=== PATIENT | male | born 1950 | race Caucasian/White ===

== ENCOUNTER 2019-08-31 08:48 | Observation (INO) ==
[2019-08-31] MEDS ORDERED: ALBUTEROL SULFATE 2.5 MG/3 ML NEBULIZER NEB ONE (09:13)
--- NOTE | 2019-08-31 09:17 | XRay Report ---
INDICATION: shortness of breath TECHNIQUE: AP portable semiupright chest x-ray COMPARISON: Previous chest x-rays dated 06/10/2019, 10/27/2017 FINDINGS: Lungs:Lungs are negative. No focal pulmonary parenchymal infiltrate or mass. There is hyperexpansion consistent with COPD. This is unchanged Heart, vascular:No significant cardiomegaly. Pulmonary vascularity is normal. No pulmonary edema or pulmonary congestion Mediastinum, mary kate:No mediastinal widening. No hilar mass Pleura:No pleural fluid. No pleural-based mass or calcification Skeletal:Small sclerotic density in the anterior left sixth rib. This is stable and considered benign IMPRESSION: 1. Changes consistent with COPD 2. No acute or focal abnormality. No interval change Interpreted and Authenticated by: Yonas Johnson 08/31/19
--- NOTE | 2019-08-31 09:24 | Emergency Department Note ---
SOB HPI General Chief Complaint: Shortness of Breath/Dyspnea Stated Complaint: shortness of breath, COPD Time Seen by Provider: 08/31/19 09:01 Source: patient Mode of arrival: wheelchair Limitations: physical limitation (Due to shortness of breath.) History of Present Illness HPI Narrative: Narrative: 69-year-old gentleman with past history of emphysema occluding exacerbation a month or 2 ago and the last 3 days increasingly short of breath with any activity. He uses inhalers at home. He is uses albuterol or nebulizer more than 4 times maybe even as many as 8 times already this morning. He has not been very successful and getting better. [facility] who [facility] him here. He had saturation in triage at 78 %. He is now on 4 L of oxygen. Admitting pulse 99, blood pressure 200/123. Denies recent fevers, chills, sweats. No change in his phlegm. He has a little chronic cough that has not much changed. Has been wheezing. No nausea or chest pain. Related Data Home Medications Medication Instructions Recorded Confirmed albuterol sulfate 2 puff INHALATION QIDP PRN 08/31/19 08/31/19 albuterol sulfate 2.5 mg INHALATION QIDP PRN 08/31/19 08/31/19 amlodipine 5 mg PO QDAY 08/31/19 08/31/19 budesonide-formoterol 2 inh INHALATION BID 08/31/19 08/31/19 celecoxib 100 mg PO QDAY 08/31/19 08/31/19 cholecalciferol (vitamin D3) 125 mcg PO QDAY 08/31/19 08/31/19 guaifenesin 600 mg PO BID 08/31/19 08/31/19 lisinopril 40 mg PO QDAY 08/31/19 08/31/19 metoprolol succinate 25 mg PO DAILY 08/31/19 08/31/19 prednisone 10 mg PO QDAY 08/31/19 08/31/19 tiotropium bromide 2 inh INHALATION QAM 08/31/19 08/31/19 Allergies Allergy/AdvReac Type Severity Reaction Status Date / Time No Known Drug Allergies Allergy Verified 08/31/19 08:37 Review of Systems ROS ROS Narrative: Narrative: Denies palpitations. No abdominal pain nausea vomiting diarrhea constipation back pain weakness anxiety or depression. PFSH Narrative Patient History Narrative: Narrative: Denies history of diabetes, chronic narcotics, anticoagulation, CHF, IN, DVT, PE, PAYTON, pneumonia, CVA, TIA. Medical/Surgical/Family History All Active Problems (Updated 08/31/19 @ 11:32 by Dmitriy Douglas DO) Acute exacerbation of chronic obstructive airways disease (Acute) Hypoxia (Acute) Cigarette smoker (Chronic) Post traumatic stress disorder (PTSD) (Chronic) Hypertension, essential (Chronic) COPD (chronic obstructive pulmonary disease) with emphysema (Chronic) Respiratory distress (Acute) Medical History (Updated 08/31/19 @ 11:32 by Dmitriy Douglas DO) Cigarette smoker (Chronic) COPD (chronic obstructive pulmonary disease) with emphysema (Chronic) COPD exacerbation (Resolved) Hypertension, essential (Chronic) Post traumatic stress disorder (PTSD) (Chronic) Respiratory distress (Acute) Rib fractures (Inactive) Social History Smoking Status: Current every day smoker Exam Narrative Narrative: Narrative: General Limitations: physical limitation (Due to shortness of breath.) General appearance: alert, in distress (Some short struggling to breathe with some audible wheezing.) and nontoxic Head Head: atraumatic and normocephalic Eye Eye: Present normal appearance, PERRL and EOMI ENT ENT: Present normal oropharynx and mucous membranes moist Neck Neck: Present trachea midline; Absent lymphadenopathy and thyromegaly Chest Chest: Present symmetric chest wall rise Respiratory Respiratory: Present wheezes (Mild-moderate but diffusely.); Absent respiratory distress, rales/crackles, stridor, accessory muscle use and prolonged expiratory phase Cardiovascular Cardiovascular: Present regular rate, normal rhythm and other (Distant and hard to hear.); Absent systolic murmur and diastolic murmur Adbominal Abdominal: Present soft and other (Domed.); Absent distention, tenderness, guarding, rebound, rigidity, organomegaly and mass Extremities Extremities: Absent pedal edema, pretibial edema, calf tenderness and cyanosis Back Back: Neurological Neurological: Present alert, oriented X3 and CN II-XII intact Psychiatric Psychiatric: Present normal affect, anxious (Mildly), polite and pleasant; Absent depressed, agitated and poor eye contact Skin Skin: Present warm and dry; Absent cyanosis and pallor Course Vital Signs Vital signs: Vital Signs Pulse Rate 99 H 08/31/19 08:50 Respiratory Rate 30 H 08/31/19 08:50 Blood Pressure 200/123 08/31/19 08:50 Pulse Oximetry (%) 78 L 08/31/19 08:50 Temperature 97.3 F 08/31/19 18:52 Pulse Rate 94 H 08/31/19 18:52 Respiratory Rate 24 H 08/31/19 18:52 Blood Pressure 148/85 08/31/19 18:52 Pulse Oximetry (%) 95 08/31/19 18:52 [facility] MDM Narrative Medical decision making narrative: Narrative: 9:05 AM - interviewed and examined. Appears to be a COPD exacerbation with significant wheezing. Will do albuterol treatment and pulmonary and ACS work- up. X-ray on my review suggests diffuse increased markings suggestive of failure. Minimal blunting. Official reading pending. Multiple labs including ABG ordered. 9:13 AM - EKG demonstrates right axis deviation with QRS at 100. Low voltage. No ACS findings. 10:42 AM - labs are fairly unremarkable with an unremarkable CBC, normal white count. CMP demonstrates sodium 127 with low chloride as well. Renal function and liver function tests unremarkable. Troponin is less than 0.01. Procalcitonin is 0.07. Lactic acid 0.6. BNP is 90. 10:44 AM - chest x-ray results: 1. Changes consistent with COPD 2. No acute or focal abnormality. No interval change 10:48 AM - nursing reports that he got down to being off of oxygen and 92% but with walking dropped to 88%. This was not vigorous or far. Will consider criteria for hypoxia, COPD exacerbation and admission. 11:15 AM - I discussed patient's circumstance with Dr. Morel who agrees with admission for COPD exacerbation with hypoxia. Lab Data Result diagrams: 08/31/19 09:07 08/31/19 09:07 Labs: Lab Results 08/31/19 08/31/19 08/31/19 Range/Units 08:54 08:54 09:07 WBC 8.8 (4.50-11.00) K/mcL RBC 4.76 (4.63-6.08) M/mcL Hgb 16.4 (13.7-17.5) g/dL Hct 46.1 (40.1-51.0) % MCV 96.8 (80.0-100.0) fL MCH 34.5 H (26.0-34.0) pg MCHC 35.6 (31.0-36.0) g/dL RDW 13.0 (11.5-14.5) % Plt Count 268 (140-440) K/mcL MPV 10.4 (7.4-10.4) fL Gran % 65.6 (38.0-78.0) % Lymph % (Auto) 17.5 (15.5-49.0) % [place] % (Auto) 8.2 (1.0-12.0) % Eos % (Auto) 7.6 H (0.0-7.0) % Baso % (Auto) 1.1 (0.0-2.0) % Gran # 5.78 (1.80-8.00) K/mcL Lymph # (Auto) 1.54 (1.50-4.80) K/mcL [place] # (Auto) 0.72 (0.10-0.90) K/mcL Eos # (Auto) 0.67 (0.00-0.70) K/mcL Baso # (Auto) 0.10 (0.00-0.30) K/mcL VBG Lactic Acid (0.5-2.0) mmol/L Sodium (133-145) mmol/L Potassium (3.3-5.1) mmol/L Chloride (96-108) mmol/L Carbon Dioxide (22-30) mmol/L Anion Gap (8-16) BUN (8-23) mg/dl Creatinine (0.7-1.2) mg/dl GFR Calculation Glucose (70-105) mg/dL Calcium (8.6-10.4) mg/dl Total Bilirubin (0.0-1.0) mg/dL AST (0-37) U/l ALT (0-40) U/l Alkaline Phosphatase (39-117) U/L Total Creatine Kinase (24-195) IU/L CK-MB (CK-2) (0-4.9) ng/ml Myoglobin (28-72) ng/ml Troponin T (0-0.03) ng/ml NT-Pro-B Natriuret Pep 89.7 (0-125) pg/ml Total Protein (5.9-8.4) gm/dL Albumin (3.2-5.2) gm/dL Globulin (2.2-3.7) gm/dL Albumin/Globulin Ratio (1.0-2.3) Procalcitonin 0.07 (<0.10) ng/mL 08/31/19 08/31/19 08/31/19 Range/Units 09:07 09:07 09:26 WBC (4.50-11.00) K/mcL RBC (4.63-6.08) M/mcL Hgb (13.7-17.5) g/dL Hct (40.1-51.0) % MCV (80.0-100.0) fL MCH (26.0-34.0) pg MCHC (31.0-36.0) g/dL RDW (11.5-14.5) % Plt Count (140-440) K/mcL MPV (7.4-10.4) fL Gran % (38.0-78.0) % Lymph % (Auto) (15.5-49.0) % [place] % (Auto) (1.0-12.0) % Eos % (Auto) (0.0-7.0) % Baso % (Auto) (0.0-2.0) % Gran # (1.80-8.00) K/mcL Lymph # (Auto) (1.50-4.80) K/mcL [place] # (Auto) (0.10-0.90) K/mcL Eos # (Auto) (0.00-0.70) K/mcL Baso # (Auto) (0.00-0.30) K/mcL VBG Lactic Acid 0.6 (0.5-2.0) mmol/L Sodium 127 L (133-145) mmol/L Potassium 5.0 (3.3-5.1) mmol/L Chloride 91 L (96-108) mmol/L Carbon Dioxide 21 L (22-30) mmol/L Anion Gap 15.0 (8-16) BUN 16 (8-23) mg/dl Creatinine 0.7 (0.7-1.2) mg/dl GFR Calculation 95 Glucose 109 H (70-105) mg/dL Calcium 9.7 (8.6-10.4) mg/dl Total Bilirubin 0.6 (0.0-1.0) mg/dL AST 25 (0-37) U/l ALT 16 (0-40) U/l Alkaline Phosphatase 57 (39-117) U/L Total Creatine Kinase 165 (24-195) IU/L CK-MB (CK-2) 13.3 H (0-4.9) ng/ml Myoglobin 50 (28-72) ng/ml Troponin T < 0.01 (0-0.03) ng/ml NT-Pro-B Natriuret Pep (0-125) pg/ml Total Protein 7.3 (5.9-8.4) gm/dL Albumin 4.9 (3.2-5.2) gm/dL Globulin 2.4 (2.2-3.7) gm/dL Albumin/Globulin Ratio 2.0 (1.0-2.3) Procalcitonin (<0.10) ng/mL Discharge Plan Patient/Caregiver Discharge Instructions Pt seen by [employer]LE[employer] CURATOR/PA only: No Clinical Impression: Acute exacerbation of chronic obstructive airways disease, Hypoxia Patient Disposition: Still a Patient Condition: Fair Discharge Date/Time: 08/31/19 12:24
[2019-08-31] MEDS ORDERED: methylPREDNISolone SOD SUCC 125 MG/2 ML VIAL IV ONE (09:47)
[2019-08-31] MEDS ORDERED: IPRATROPIUM/ALBUTEROL 3 ML AMPUL.NEB NEB ONE (09:47)
[2019-08-31 09:49] LABS: Basophils % (Auto) 1.1 % (0.0-2.0); Eosinophils # (Auto) 0.67 K/mcL (0.00-0.70); Eosinophils % (Auto) 7.6 % (0.0-7.0); Granulocytes % (Auto) 65.6 % (38.0-78.0); Hematocrit 46.1 % (40.1-51.0); Hemoglobin 16.4 g/dL (13.7-17.5); Lymphocytes # (Auto) 1.54 K/mcL (1.50-4.80); Lymphocytes % (Auto) 17.5 % (15.5-49.0); Mean Cell Volume 96.8 fL (80.0-100.0); Mean Corpuscular HGB Conc 35.6 g/dL (31.0-36.0); Mean Platelet Volume 10.4 fL (7.4-10.4); Monocytes # (Auto) 0.72 K/mcL (0.10-0.90); Monocytes % (Auto) 8.2 % (1.0-12.0); Platelet Count 268 K/mcL (140-440); RBC 4.76 M/mcL (4.63-6.08); WBC 8.8 K/mcL (4.50-11.00)
[2019-08-31 10:02] LABS: Creatine Kinase MB 13.3 ng/ml (0-4.9); Myoglobin 50 ng/ml (28-72)
[2019-08-31 10:02] LABS: proBNP 89.7 pg/ml (0-125)
[2019-08-31 10:04] LABS: ALT/SGPT 16 U/l (0-40); AST/SGOT 25 U/l (0-37); Albumin 4.9 gm/dL (3.2-5.2); Alkaline Phosphatase 57 U/L (39-117); Bilirubin,Total 0.6 mg/dL (0.0-1.0); Blood Urea Nitrogen 16 mg/dl (8-23); Calcium 9.7 mg/dl (8.6-10.4); Carbon Dioxide 21 mmol/L (22-30); Chloride 91 mmol/L (96-108); Creatine Kinase 165 IU/L (24-195); Globulin 2.4 gm/dL (2.2-3.7); Glomerular Filtration Rate 95; Glucose 109 mg/dL (70-105)
--- NOTE | 2019-08-31 11:14 | Internal Med History&Physical ---
HPI History of Present Illness Patient information: Note initiated : 08/31/19 at 11:14 am Service Date, if different from initiated Date: [] Patient: Jose Welch 69 y/o M admitted on for SOB - COPD. Chief Complaint: [] History of present illness: Mr. Welch is a 69 year old M with an [id number] history of smoking/COPD/hypertension who presents to the ER with 3 days onset of worsening shortness of breath. Patient continues smoke quarter to half pack a day. Over the last 3 days he has progressively gotten worse with increasing dyspnea even at rest. He has been unable to function or talk in full sentences. With worsening symptoms he presents to primary care physician at [facility] and was referred to the ER for evaluation Initial work-up was consistent with COPD exacerbation requiring close oxygen/tachypneic tachycardic. ABG 7.3 . Patient was started on bronchodilators/IV steroids however due to inadequate relief hospitalist service was consulted for admission. At the time evaluation patient is alert and oriented. He is barely able to talk in full sentences. He appears distressed. He denies flu or pneumonia vaccine and does not believe in vaccination. He denies sick contacts. Denies changes in medications. He denies lower extremity swelling, weight loss, hemoptysis, diarrhea dysuria joint pain or rash. Review of systems 10 point review system was performed and is negative except for ones cussed above PFSH PFS Medical History (Updated 08/31/19 @ 11:32 by Dmitriy Douglas DO) Cigarette smoker (Chronic) COPD (chronic obstructive pulmonary disease) with emphysema (Chronic) COPD exacerbation (Resolved) Hypertension, essential (Chronic) Post traumatic stress disorder (PTSD) (Chronic) Respiratory distress (Acute) Rib fractures (Inactive) Social History (Updated 06/10/19 @ 10:47 by Milan Hill PA-C) smoking status: Current every day smoker MEDS/ALLERGIES Home Medications and Allergies Home Medications Medication Instructions Recorded Confirmed Type Celebrex 100 mg PO BID 08/31/19 08/31/19 History Symbicort 1 dose PO DAILY 08/31/19 08/31/19 History albuterol sulfate 90 mcg INHALATION DAILY 08/31/19 08/31/19 History amlodipine benzoate 10 mg PO DAILY 08/31/19 08/31/19 History budesonide-formoterol 4.5 mcg PO DAILY 08/31/19 08/31/19 History cholecalciferol (vitamin D3) 125 mcg PO DAILY 08/31/19 08/31/19 History guaifenesin 600 mg PO DAILY 08/31/19 08/31/19 History ipratropium-albuterol 3 ml PO DAILY 08/31/19 08/31/19 History lisinopril 40 mg PO DAILY 08/31/19 08/31/19 History metoprolol succinate 25 mg PO DAILY 08/31/19 08/31/19 History prednisone 10 mg PO DAILY 08/31/19 08/31/19 History tiotropium bromide 1 dose PO DAILY 08/31/19 08/31/19 History Allergies Allergy/AdvReac Type Severity Reaction Status Date / Time No Known Drug Allergies Allergy Verified 08/31/19 08:37 EXAM Constitutional Vitals: Pulse Resp BP Pulse Ox 94 H 25 H 145/94 92 08/31/19 11:01 08/31/19 11:01 08/31/19 11:01 08/31/19 11:01 Head normocephalic Oral cavity moist No ear nose discharge Eye movement symmetrical Neck supple no visible lymphadenopathy Chested, occasionally irregular rhythm Labored breathing Nondistended nontender abdomen Lower extremity no cyanosis clubbing or joint swelling Skin no suspicious lesion Psych anxious but alert cooperative Neuro normal higher function DATA Data Completed and Pending Labs on day of discharge: Labs from last 24 hours 08/31/19 08/31/19 08/31/19 09:26 09:07 09:07 WBC RBC Hgb Hct MCV MCH MCHC RDW Plt Count MPV Gran % Lymph % (Auto) Delta % (Auto) Eos % (Auto) Baso % (Auto) Gran # Lymph # (Auto) Delta # (Auto) Eos # (Auto) Baso # (Auto) VBG Lactic Acid 0.6 Sodium 127 L Potassium 5.0 Chloride 91 L Carbon Dioxide 21 L Anion Gap 15.0 BUN 16 Creatinine 0.7 GFR Calculation 95 Glucose 109 H Calcium 9.7 Total Bilirubin 0.6 AST 25 ALT 16 Alkaline Phosphatase 57 Total Creatine Kinase 165 CK-MB (CK-2) 13.3 H Myoglobin 50 Troponin T < 0.01 NT-Pro-B Natriuret Pep Total Protein 7.3 Albumin 4.9 Globulin 2.4 Albumin/Globulin Ratio 2.0 Procalcitonin 08/31/19 08/31/19 08/31/19 09:07 08:54 08:54 WBC 8.8 RBC 4.76 Hgb 16.4 Hct 46.1 MCV 96.8 MCH 34.5 H MCHC 35.6 RDW 13.0 Plt Count 268 MPV 10.4 Gran % 65.6 Lymph % (Auto) 17.5 [place] % (Auto) 8.2 Eos % (Auto) 7.6 H Baso % (Auto) 1.1 Gran # 5.78 Lymph # (Auto) 1.54 Delta # (Auto) 0.72 Eos # (Auto) 0.67 Baso # (Auto) 0.10 VBG Lactic Acid Sodium Potassium Chloride Carbon Dioxide Anion Gap BUN Creatinine GFR Calculation Glucose Calcium Total Bilirubin AST ALT Alkaline Phosphatase Total Creatine Kinase CK-MB (CK-2) Myoglobin Troponin T NT-Pro-B Natriuret Pep 89.7 Total Protein Albumin Globulin Albumin/Globulin Ratio Procalcitonin 0.07 A/P Narrative A/P Narrative: * Acute exacerbation of COPD, start bronchodilators/IV steroids/pulmonary toilet. No indication for antibiotic at this time. 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 Continue supplemental oxygen * Hypertension continue lisinopril/metoprolol/amlodipine * History of alcoholism-monitor for withdrawal. Beer with meals * History of tobacco dependence-nicotine patch * Prophylaxis heparin Plan * Observation admit * Steroids/bronchodilators * Pulmonary toilet * Pre-existing medical condition management home meds * Discharge planning Time Spent With Patient Time: Total time spent is greater than 50% in coordination of care (as documented) at patient's floor/unit and/or counseling patient: Total time spent with greater than 50% in coordination of care (as documented) at patient's floor/unit and/or counseling patient:: Greater than 35 minutes
[2019-08-31] MEDS ORDERED: ACETAMINOPHEN 650 MG/65 ML BOTTLE IV PRN (12:48)
[2019-08-31] MEDS ORDERED: POLYETHYLENE GLYCOL 3350 17 GM PACKET PO PRN (12:48)
[2019-08-31] MEDS ORDERED: POTASSIUM CHLORIDE 20 MEQ PACKET PO PRN (12:48)
[2019-08-31] MEDS ORDERED: ONDANSETRON 4 MG/2 ML VIAL IV PRN (12:48)
[2019-08-31] MEDS ORDERED: ACETAMINOPHEN 325 MG TABLET PO PRN (12:48)
[2019-08-31] MEDS ORDERED: BISACODYL 10 MG SUPP.RECT PR PRN (12:48)
[2019-08-31] MEDS ORDERED: MAGNESIUM SULFATE 2 GM/50 ML BAG IV PRN (12:48)
[2019-08-31] MEDS ORDERED: ONDANSETRON 4 MG ODT TABLET SL PRN (12:48)
[2019-08-31] MEDS ORDERED: guaiFENesin/CODEINE 10 ML UDC PO PRN (12:48)
[2019-08-31] MEDS: IPRATROPIUM/ALBUTEROL 3 ML AMPUL.NEB NEB SCH ×3 (14:55→23:05)
[2019-08-31] MEDS ORDERED: ALBUTEROL SULFATE 2.5 MG/3 ML NEBULIZER NEB PRN (15:38)
[2019-08-31] MEDS: 0.9 % SODIUM CHLORIDE 10 ML SYRINGE IV SCH ×2 (17:27→20:03)
[2019-08-31] MEDS: HEPARIN 5,000 UNIT/ML VIAL SQ SCH (19:55)
[2019-08-31] MEDS: methylPREDNISolone SOD SUCC 125 MG/2 ML VIAL IV SCH (19:55)
[2019-08-31] MEDS: MELATONIN 3 MG TABLET PO PRN (19:56)
[2019-08-31] MEDS: CELECOXIB 100 MG CAPSULE PO SCH (19:56)
[2019-08-31] MEDS: SENNOSIDES/DOCUSATE SODIUM 1 TAB TABLET PO SCH (19:56)
[2019-08-31] MEDS: DOCUSATE SODIUM 100 MG CAPSULE PO SCH (19:56)
[2019-09-01] MEDS: IPRATROPIUM/ALBUTEROL 3 ML AMPUL.NEB NEB SCH ×6 (03:42→23:03)
[2019-09-01] MEDS: 0.9 % SODIUM CHLORIDE 10 ML SYRINGE IV SCH ×3 (06:36→19:59)
[2019-09-01 07:14] LABS: Hematocrit 43.4 % (40.1-51.0); Hemoglobin 15.5 g/dL (13.7-17.5); Mean Cell Volume 95.8 fL (80.0-100.0); Mean Corpuscular HGB Conc 35.7 g/dL (31.0-36.0); Mean Platelet Volume 10.1 fL (7.4-10.4); Platelet Count 254 K/mcL (140-440); RBC 4.53 M/mcL (4.63-6.08); Red Cell Distribution Width 12.7 % (11.5-14.5); WBC 5.3 K/mcL (4.50-11.00)
[2019-09-01] MEDS: DOCUSATE SODIUM 100 MG CAPSULE PO SCH ×2 (08:06→19:58)
[2019-09-01 08:11] LABS: Bilirubin,Direct < 0.2 mg/dL (0.0-0.3)
[2019-09-01 08:12] LABS: ALT/SGPT 13 U/l (0-40); AST/SGOT 24 U/l (0-37); Albumin/Globulin Ratio 1.4 (1.0-2.3); Alkaline Phosphatase 46 U/L (39-117); Bilirubin,Total 0.5 mg/dL (0.0-1.0); Blood Urea Nitrogen 17 mg/dl (8-23); Calcium 9.6 mg/dl (8.6-10.4); Carbon Dioxide 18 mmol/L (22-30); Chloride 89 mmol/L (96-108); Globulin 2.8 gm/dL (2.2-3.7); Glomerular Filtration Rate 95; Glucose 121 mg/dL (70-105); Lactate Dehydrogenase 224 U/L (94-250); Triglycerides 39 mg/dl (<150); Uric Acid 5.5 mg/dL (2.5-8.0)
[2019-09-01] MEDS ORDERED: ALBUTEROL SULFATE 200 PUFF INHALER INH SCH (09:00)
[2019-09-01] MEDS ORDERED: SYMBICORT PO SCH (09:00)
[2019-09-01] MEDS: VITAMIN D3 5,000 UNIT CAPSULE PO SCH (09:02)
[2019-09-01] MEDS: amLODIPine 5 MG TABLET PO SCH (09:02)
[2019-09-01] MEDS: MULTIVIT,THER IRON,CA,FA & MIN 1 TABLET PO SCH (09:02)
[2019-09-01] MEDS: METOPROLOL SUCCINATE 25 MG TAB.XL.24H PO SCH (09:02)
[2019-09-01] MEDS: guaiFENesin 600 MG TAB.SR.12H PO SCH (09:02)
[2019-09-01] MEDS: methylPREDNISolone SOD SUCC 125 MG/2 ML VIAL IV SCH ×2 (09:03→19:58)
[2019-09-01] MEDS: HEPARIN 5,000 UNIT/ML VIAL SQ SCH ×2 (09:04→19:58)
[2019-09-01] MEDS: CELECOXIB 100 MG CAPSULE PO SCH ×2 (09:05→19:58)
[2019-09-01] MEDS: TIOTROPIUM BROMIDE 18 MCG INHALANT INH SCH (09:06)
[2019-09-01] MEDS: BUDESONIDE FORMOTEROL INH SCH ×2 (09:06→20:35)
[2019-09-01] MEDS: SODIUM CHLORIDE 1 GM TABLET PO SCH ×3 (09:11→19:58)
[2019-09-01] MEDS: LISINOPRIL 20 MG TABLET PO SCH (09:11)
[2019-09-01 09:25] LABS: Lymphocytes % 12 % (15-49); Monocytes % (Manual) 2 % (1-12); Platelet Estimate NORMAL (NORMAL); RBC Morphology NORMAL (NORMAL); Segmented Neutrophils % 86 % (38-78)
[2019-09-01] MEDS ORDERED: CYANOCOBALAMIN 1,000 MCG/ML VIAL IM ONE (09:31)
--- NOTE | 2019-09-01 09:38 | Internal Med Progress Note ---
SUBJECTIVE Subjective Patient information: Note initiated : 09/01/19 at 9:36 am Service Date, if different from initiated Date: [] Patient: Jose Welch 69 y/o M admitted on 08/31/19 for SOB - COPD. History of present illness: Mr. Welch is a 69 year old M with an [id number] history of smoking/COPD/hypertension who presents to the ER with 3 days onset of worsening shortness of breath. Patient continues smoke quarter to half pack a day. Over the last 3 days he has progressively gotten worse with increasing dyspnea even at rest. He has been unable to function or talk in full sentences. With worsening symptoms he presents to primary care physician at [facility] and was referred to the ER for evaluation Initial work-up was consistent with COPD exacerbation requiring close oxygen/t achypneic tachycardic. ABG 7.3 /110. Patient was started on bronchodilators/IV steroids however due to inadequate relief hospitalist service was consulted for admission. At the time evaluation patient is alert and oriented. He is barely able to talk in full sentences. He appears distressed. He denies flu or pneumonia vaccine and does not believe in vaccination. He denies sick contacts. Denies changes in medications. He denies lower extremity swelling, weight loss, hemoptysis, diarrhea dysuria joint pain or rash. 08/31-patient feeling a lot better. On IV steroids. Improved dyspnea. Able to talk in near full sentences. Tolerating diet.White count 5.3. Sodium down to 123. Check urine and serum osmolarity. Interval history: Narrative: Constitutional Vitals: Vital Signs Temp Pulse Resp BP Pulse Ox 97.4 F 84 20 137/84 93 09/01/19 06:55 09/01/19 06:55 09/01/19 06:55 09/01/19 06:55 09/01/19 06:55 Period Temp Pulse Resp BP Sys/Mckeon Pulse Ox Last 24 Hr 97.0 F-98.7 F 79-98 16-29 132-164/77-126 89-99 Intake and Output 08/31/19 09/01/19 09/01/19 21:59 05:59 13:59 Intake Total 240 200 900 Output Total 1000 1250 Balance -760 -1050 900 Weight 95.753 kg Alert oriented Nonlabored breathing Minimal anxiety Ambulating Intake & Output: Intake & Output 08/31/19 09/01/19 09/01/19 21:59 05:59 13:59 Intake Total 240 200 900 Output Total 1000 1250 Balance -760 -1050 900 Weight 95.753 kg Intake: Oral 200 900 GI Tube Flush 240 Output: Void Amount 1000 1250 Other: Meal Dinner Breakfast Percent of Meal Consumed 100% 100% Feeding Ability Independent Urine Appearance Clear Clear Urine Color Bright Yellow Bright Yellow Urine Odor Normal # Voids 1 OBJ DATA Labs CBC & Chem 7: 09/01/19 05:22 09/01/19 05:22 Labs: Abnormal Lab Results 09/01/19 09/01/19 08/31/19 05:22 05:22 09:07 RBC 4.53 L MCH 34.2 H Eos % (Auto) Seg Neutrophils % 86 H Lymphocytes % 12 L Sodium 123 L 127 L Chloride 89 L 91 L Carbon Dioxide 18 L 21 L Glucose 121 H 109 H CK-MB (CK-2) 13.3 H 08/31/19 09:07 RBC MCH 34.5 H Eos % (Auto) 7.6 H Seg Neutrophils % Lymphocytes % Sodium Chloride Carbon Dioxide Glucose CK-MB (CK-2) Meds: Medications Acetaminophen (Tylenol) 650 mg PO Q4-6HP PRN; Protocol PRN Reason: Per Pain Protocol/Fever > 101 Albuterol Sulfate (Ventolin) 2.5 mg NEB Q4HP PRN PRN Reason: Shortness Of Breath Albuterol/Ipratropium (Duoneb) 3 ml NEB Q4HRT [facility] Last Admin: 09/01/19 06:45 Dose: 3 ml Documented by: Amlodipine Besylate (Norvasc) 5 mg PO DAILY [facility] Last Admin: 09/01/19 09:02 Dose: 5 mg Documented by: Bisacodyl (Dulcolax) 10 mg SD Q2-3DAYS PRN PRN Reason: Constipation Celecoxib (Celebrex) 100 mg PO BID [facility] Last Admin: 09/01/19 09:05 Dose: 100 mg Documented by: Cyanocobalamin (Vitamin B12) 1,000 mcg IM ONCE ONE Stop: 09/01/19 09:32 Docusate Sodium (Colace) 100 mg PO BID [facility] Last Admin: 09/01/19 08:06 Dose: Not Given Documented by: Guaifenesin (Mucinex) 600 mg PO DAILY [facility] Last Admin: 09/01/19 09:02 Dose: 600 mg Documented by: Guaifenesin/Codeine Phosphate (Robitussin Ac) 10 ml PO Q4HP PRN PRN Reason: Cough Heparin Sodium (Porcine) (Heparin) 5,000 unit SQ Q12 [facility] Last Admin: 09/01/19 09:04 Dose: 5,000 unit Documented by: Acetaminophen (Ofirmev) 650 mg in 65 mls @ 130 mls/hr IV Q6HP PRN; Protocol PRN Reason: Per Pain Protocol/Fever > 101 Magnesium Sulfate (Magnesium Sulfate) 2 gm in 50 mls @ 50 mls/hr IV UD PRN PRN Reason: MG = or < 1.7 Iron Carb/Multivit/Rankin/Folic Acid (Multivitamin W/Minerals) 1 tab PO DAILY [facility] Last Admin: 09/01/19 09:02 Dose: 1 tab Documented by: Lisinopril (Zestril) 40 mg PO DAILY [facility] Last Admin: 09/01/19 09:11 Dose: 40 mg Documented by: Melatonin (Melatonin 3mg Tablet) 3 mg PO HSP PRN PRN Reason: Insomnia Last Admin: 08/31/19 19:56 Dose: 3 mg Documented by: Methylprednisolone Sodium Succinate (Solu-Medrol) 60 mg IV Q12 [facility] Last Admin: 09/01/19 09:03 Dose: 60 mg Documented by: Methylprednisolone Sodium Succinate (Solu-Medrol) 62.5 mg IV Q12 [facility] Metoprolol Succinate (Toprol Xl) 25 mg PO DAILY [facility] Last Admin: 09/01/19 09:02 Dose: 25 mg Documented by: Ondansetron HCl (Zofran Odt) 4 mg SL Q4-6HP PRN; Protocol PRN Reason: Nausea And Vomiting Ondansetron HCl (Zofran) 4 mg IV Q4-6HP PRN; Protocol PRN Reason: Nausea And Vomiting Budesonide- Formoterol 160 Mcg/4 .5 Mcg Inhaler 2 dose INH BID [facility] Last Admin: 09/01/19 09:06 Dose: 2 dose Documented by: Polyethylene Glycol (Miralax) 17 gm PO DAILYP PRN PRN Reason: Constipation Potassium Chloride (Klor-Con) 40 meq PO DAILYP PRN PRN Reason: K+ < 3.5 Senna/Docusate Sodium (Senna Plus Tablet) 1 tab PO HS [facility] Last Admin: 08/31/19 19:56 Dose: Not Given Documented by: Sodium Chloride (Saline Flush) 10 ml IV Q8 [facility] Last Admin: 09/01/19 06:36 Dose: Not Given Documented by: Sodium Chloride (Sodium Chloride) 2 gm PO TID [facility] Last Admin: 09/01/19 09:11 Dose: 2 gm Documented by: Tiotropium [place] (Spiriva) 36 mcg INH DAILY [facility] Last Admin: 09/01/19 09:06 Dose: 1 puff Documented by: Vitamin D (Vitamin D3) 5,000 unit PO DAILY [facility] Last Admin: 09/01/19 09:02 Dose: 5,000 unit Documented by: A/P Narrative A/P Narrative: * Acute exacerbation of COPD, continue bronchodilators/IV steroids/pulmonary toilet. * Euvolemic hyponatremia. Check serum and urine osmolality. Salt tabs. 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 Continue supplemental oxygen * Hypertension continue lisinopril/metoprolol/amlodipine * History of alcoholism-continue beer with meals * History of tobacco dependence-nicotine patch, smoking cessation counseling * Prophylaxis heparin Plan * Sodium chloride p.o. * Urine serum osmolarity * Continue pulmonary toilet/steroids/bronchodilators * Pre-existing medical condition management home meds * Discharge planning Time Spent With Patient Time: Total time spent is greater than 50% in coordination of care (as documented) at patient's floor/unit and/or counseling patient: 35 minutes QUALITY VTE Deep Vein Thrombosis/Pulmonary Embolism Present on Admission: No
[2019-09-01] MEDS ORDERED: methylPREDNISolone SOD SUCC 125 MG/2 ML VIAL IV SCH (09:40)
[2019-09-01] MEDS: MELATONIN 3 MG TABLET PO PRN (19:58)
[2019-09-01] MEDS: SENNOSIDES/DOCUSATE SODIUM 1 TAB TABLET PO SCH (19:59)
[2019-09-02] MEDS: IPRATROPIUM/ALBUTEROL 3 ML AMPUL.NEB NEB SCH ×3 (02:59→11:17)
[2019-09-02] MEDS: 0.9 % SODIUM CHLORIDE 10 ML SYRINGE IV SCH ×2 (03:00→07:31)
[2019-09-02 06:36] LABS: Hematocrit 43.6 % (40.1-51.0); Hemoglobin 15.3 g/dL (13.7-17.5); Mean Corpuscular HGB Conc 35.1 g/dL (31.0-36.0); Platelet Count 260 K/mcL (140-440); RBC 4.45 M/mcL (4.63-6.08); Red Cell Distribution Width 13.3 % (11.5-14.5); WBC 11.2 K/mcL (4.50-11.00)
[2019-09-02 06:55] LABS: ALT/SGPT 14 U/l (0-40); AST/SGOT 17 U/l (0-37); Albumin 4.2 gm/dL (3.2-5.2); Albumin/Globulin Ratio 1.8 (1.0-2.3); Alkaline Phosphatase 43 U/L (39-117); Bilirubin,Direct < 0.2 mg/dL (0.0-0.3); Bilirubin,Total 0.3 mg/dL (0.0-1.0); Blood Urea Nitrogen 23 mg/dl (8-23); Calcium 9.6 mg/dl (8.6-10.4); Globulin 2.4 gm/dL (2.2-3.7); Glomerular Filtration Rate 95; Glucose 123 mg/dL (70-105); Lactate Dehydrogenase 164 U/L (94-250); Phosphorous 3.9 mg/dL (2.7-4.5); Triglycerides 49 mg/dl (<150); Uric Acid 5.2 mg/dL (2.5-8.0)
[2019-09-02 06:56] LABS: Carbon Dioxide 25 mmol/L (22-30); Chloride 95 mmol/L (96-108)
[2019-09-02] MEDS: HEPARIN 5,000 UNIT/ML VIAL SQ SCH (08:29)
[2019-09-02] MEDS: methylPREDNISolone SOD SUCC 125 MG/2 ML VIAL IV SCH (08:30)
[2019-09-02] MEDS: amLODIPine 5 MG TABLET PO SCH (08:31)
[2019-09-02] MEDS: guaiFENesin 600 MG TAB.SR.12H PO SCH (08:31)
[2019-09-02] MEDS: MULTIVIT,THER IRON,CA,FA & MIN 1 TABLET PO SCH (08:31)
[2019-09-02] MEDS: METOPROLOL SUCCINATE 25 MG TAB.XL.24H PO SCH (08:31)
[2019-09-02] MEDS: DOCUSATE SODIUM 100 MG CAPSULE PO SCH (08:31)
[2019-09-02] MEDS: LISINOPRIL 20 MG TABLET PO SCH (08:31)
[2019-09-02 08:32] LABS: Lymphocytes % 7 % (15-49); Monocytes % (Manual) 7 % (1-12); Platelet Estimate NORMAL (NORMAL); RBC Morphology NORMAL (NORMAL); Segmented Neutrophils % 86 % (38-78)
[2019-09-02] MEDS: VITAMIN D3 5,000 UNIT CAPSULE PO SCH (08:32)
[2019-09-02] MEDS: SODIUM CHLORIDE 1 GM TABLET PO SCH (08:32)
[2019-09-02] MEDS: CELECOXIB 100 MG CAPSULE PO SCH (09:08)
[2019-09-02] MEDS: TIOTROPIUM BROMIDE 18 MCG INHALANT INH SCH (09:08)
[2019-09-02] MEDS: BUDESONIDE FORMOTEROL INH SCH (09:09)
--- NOTE | 2019-09-02 10:52 | Discharge Summary ---
Discharge Provider Provider Patient information: Note initiated : 09/02/19 at 10:48 am Service Date, if different from initiated Date: [] Patient: Jose Welch 69 y/o M admitted on 08/31/19 for SOB - COPD. Chief Complaint: [] Date of admission: 08/31/19 12:23 Discharge date: 09/02/19 Primary care physician: Kayleigh Irving Consults: 08/31/19 Consult to Physician [CONS] Stat Comment: Consulting Provider: Pako Camacho Reason For Exam: Physician to Consult Discharge Meds Discharge Medications Home Medications albuterol sulfate 2 puff INHALATION QIDP PRN 08/31/19 [History Confirmed 08/31/19 Last Taken Unknown] albuterol sulfate 2.5 mg INHALATION QIDP PRN 08/31/19 [History Confirmed 08/31/19 Last Taken Unknown] amlodipine 5 mg PO QDAY 08/31/19 [History Confirmed 08/31/19 Last Taken Unknown] budesonide-formoterol 2 inh INHALATION BID 08/31/19 [History Confirmed 08/31/19 Last Taken Unknown] celecoxib 100 mg PO QDAY 08/31/19 [History Confirmed 08/31/19 Last Taken Unknown] cholecalciferol (vitamin D3) 125 mcg PO QDAY 08/31/19 [History Confirmed 08/31/19 Last Taken Unknown] guaifenesin 600 mg PO BID 08/31/19 [History Confirmed 08/31/19 Last Taken Unknown] lisinopril 40 mg PO QDAY 08/31/19 [History Confirmed 08/31/19 Last Taken Unknown] metoprolol succinate 25 mg PO DAILY 08/31/19 [History Confirmed 08/31/19 Last Taken Unknown] prednisone 10 mg PO QDAY 08/31/19 [History Confirmed 08/31/19 Last Taken U nknown] tiotropium bromide 2 inh INHALATION QAM 08/31/19 [History Confirmed 08/31/19 Last Taken Unknown] prednisone 40 mg PO QDAY 5 Days #20 tab 09/02/19 [Rx Last Taken Unknown] COURSE Hospital Course Hospital Course: Discharge diagnosis Acute exacerbation of COPD, clinical improvement noted on bronchodilators/IV steroids. Transition to oral prednisone. Hypoxic respiratory failure. Secondary to COPD exacerbation. Recommend outpatient follow-up with pulmonology for PFTs. Qualifies for home oxygen. Maintain sats around 88% Euvolemic hyponatremia. SIADH per urine osmolality. Continue free water restriction. Improved on salt tabs. Sodium 133. Hypertension continue lisinopril/metoprolol/amlodipine History of alcoholism-no evidence of withdrawals. History of tobacco dependence-nicotine patch, smoking cessation counseling Brief hospital course Mr. Welch is a 69 year old M with an [id number] history of smoking/COPD/hypertension who presents to the ER with 3 days onset of worsening shortness of breath. Patient continues smoke quarter to half pack a day. Over the last 3 days he has progressively gotten worse with increasing dyspnea even at rest. He has been unable to function or talk in full sentences. With worsening symptoms he presents to primary care physician at [facility] and was referred to the ER for evaluation Initial work-up was consistent with COPD exacerbation requiring close oxygen/tachypneic tachycardic. ABG 7.3 . Patient was started on bronchodilators/IV steroids however due to inadequate relief hospitalist service was consulted for admission. At the time evaluation patient is alert and oriented. He is barely able to talk in full sentences. He appears distressed. He denies flu or pneumonia vaccine and does not believe in vaccination. He denies sick contacts. Denies changes in medications. He denies lower extremity swelling, weight loss, hemoptysis, diarrhea dysuria joint pain or rash. 08/31-patient feeling a lot better. On IV steroids. Improved dyspnea. Able to talk in near full sentences. Tolerating diet.White count 5.3. Sodium down to 123. Check urine and serum osmolarity. Interval history: Narrative: 09/01 Patient doing well. No overnight events. Discharging on oral steroid for additional 5 days. Advised to refrain from smoking. Follow-up pulmonology for pulmonary function test. Qualify for home oxygen. Maintain sats between 88-90. Discharge diagnosis: . Time Spent with Patient Time attestation: Total time spent providing and/or coordinating discharge services: EXAM Constitutional Vitals: Temp Pulse Resp BP Pulse Ox 96.8 F L 81 22 147/85 94 09/02/19 08:00 09/02/19 08:00 09/02/19 08:00 09/02/19 08:00 09/02/19 08:00 Discharge Data Data Completed and Pending Labs on day of discharge: Labs from last 24 hours 09/02/19 09/02/19 09/01/19 05:18 05:18 10:30 WBC 11.2 H RBC 4.45 L Hgb 15.3 Hct 43.6 MCV 98.0 MCH 34.4 H MCHC 35.1 RDW 13.3 Plt Count 260 MPV 10.0 Total Counted 100 Seg Neutrophils % 86 H Band Neutrophils % Not Reportable Lymphocytes % 7 L Monocytes % (Manual) 7 Platelet Estimate Normal RBC Morphology Normal Sodium 133 Potassium 4.6 Chloride 95 L Carbon Dioxide 25 Anion Gap 13.0 BUN 23 Creatinine 0.7 GFR Calculation 95 Glucose 123 H Uric Acid 5.2 Calcium 9.6 Phosphorus 3.9 Magnesium 2.1 Total Bilirubin 0.3 Direct Bilirubin < 0.2 GGT 23 AST 17 ALT 14 Alkaline Phosphatase 43 Lactate Dehydrogenase 164 Total Protein 6.6 Albumin 4.2 Globulin 2.4 Albumin/Globulin Ratio 1.8 Triglycerides 49 Urine Osmolality 617 Discharge Plan Patient/Caregiver Discharge Instructions Diet: Regular Diet Instructions: COPD (Chronic Obstructive Pulmonary Disease) (DC), Hypoxia (ED) Activity Restrictions/Additional Instructions: Free water restriction to 1500 cc a day Follow pulmonology for pulmonary function test/COPD management Home oxygen Continue steroids patient 5 days Refrain from smoking Prescriptions: New prednisone 10 mg tablet 40 mg PO QDAY 5 Days Qty: 20 RF: 0 Continued prednisone 10 mg Tablet 10 mg PO QDAY RF: 0 albuterol sulfate 2.5 mg /3 mL (0.083 %) Solution For Nebulization 2.5 mg INHALATION QIDP PRN (Reason: Shortness Of Breath) RF: 0 amlodipine 10 mg Tablet 5 mg PO QDAY RF: 0 metoprolol succinate 25 mg Tablet Extended Release 24 Hr 25 mg PO DAILY RF: 0 albuterol sulfate 90 mcg/actuation Hfa Aerosol Inhaler 2 puff INHALATION QIDP PRN (Reason: Shortness Of Breath) RF: 0 celecoxib 100 mg Capsule 100 mg PO QDAY RF: 0 lisinopril 40 mg Tablet 40 mg PO QDAY RF: 0 cholecalciferol (vitamin D3) 125 mcg (5,000 unit) Capsule 125 mcg PO QDAY RF: 0 tiotropium bromide 2.5 mcg/actuation Mist 2 inh INHALATION QAM RF: 0 guaifenesin 600 mg Tablet Extended Release 12hr 600 mg PO BID RF: 0 budesonide-formoterol 160-4.5 mcg/actuation Hfa Aerosol Inhaler 2 inh INHALATION BID RF: 0 Follow Up Plan Follow up with: Pierre Coyle MD [Physician] - (Dr. Coyle's office will call you with an appointment.) Kayliegh IrvingRAJ [Primary Care Provider] - 09/08/19 4:00 pm Patient Disposition: Home, Self-Care Hospital Course: Discharge diagnosis Acute exacerbation of COPD, clinical improvement noted on bronchodilators/IV steroids. Transition to oral prednisone. Hypoxic respiratory failure. Secondary to COPD exacerbation. Recommend outpatient follow-up with pulmonology for PFTs. Qualifies for home oxygen. Maintain sats around 88% Euvolemic hyponatremia. SIADH per urine osmolality. Continue free water res triction. Improved on salt tabs. Sodium 133. Hypertension continue lisinopril/metoprolol/amlodipine History of alcoholism-no evidence of withdrawals. History of tobacco dependence-nicotine patch, smoking cessation counseling Brief hospital course Mr. Welch is a 69 year old M with an [id number] history of smoking/COPD/hypertension who presents to the ER with 3 days onset of worsening shortness of breath. Patient continues smoke quarter to half pack a day. Over the last 3 days he has progressively gotten worse with increasing dyspnea even at rest. He has been unable to function or talk in full sentences. With worsening symptoms he presents to primary care physician at [place] Kayleigh Irving and was referred to the ER for evaluation Initial work-up was consistent with COPD exacerbation requiring close oxygen/tachypneic tachycardic. ABG 7.3 /110. Patient was started on bronchodilators/IV steroids however due to inadequate relief hospitalist service was consulted for admission. At the time evaluation patient is alert and oriented. He is barely able to talk in full sentences. He appears distressed. He denies flu or pneumonia vaccine and does not believe in vaccination. He denies sick contacts. Denies changes in medications. He denies lower extremity swelling, weight loss, hemoptysis, diarrhea dysuria joint pain or rash. 08/31-patient feeling a lot better. On IV steroids. Improved dyspnea. Able to talk in near full sentences. Tolerating diet.White count 5.3. Sodium down to 123. Check urine and serum osmolarity. Interval history: Narrative: 09/01 Patient doing well. No overnight events. Discharging on oral steroid for additional 5 days. Advised to refrain from smoking. Follow-up pulmonology for pulmonary function test. Qualify for home oxygen. Maintain sats between 88-90. Prognosis: Fair Overall status at discharge: patient is progressing back to baseline Discharge Orders: Discharge Order (Routine); Ordered 09/02/19 Ordered By: Pako GIBBONS VTE Deep Vein Thrombosis/Pulmonary Embolism Present on Admission: No
--- NOTE | 2019-09-02 11:22 | Internal Med Progress Note ---
SUBJECTIVE Subjective Interval history: Narrative: Constitutional Vitals: Vital Signs Temp Pulse Resp BP Pulse Ox 96.8 F L 78 16 147/85 94 09/02/19 08:00 09/02/19 11:17 09/02/19 11:17 09/02/19 08:00 09/02/19 08:00 Period Temp Pulse Resp BP Sys/Mckeon Pulse Ox Last 24 Hr 96.7 F-98.6 F 71-92 15-22 114-155/72-86 92-95 Intake and Output 09/01/19 09/02/19 09/02/19 21:59 05:59 13:59 Intake Total 360 300 840 Output Total 450 1100 Balance -90 -800 840 Weight 96.388 kg Intake & Output: Intake & Output 09/01/19 09/02/19 09/02/19 21:59 05:59 13:59 Intake Total 360 300 840 Output Total 450 1100 Balance -90 -800 840 Weight 96.388 kg Intake: Oral 360 300 840 Output: Void Amount 450 1100 Other: Meal Dinner Breakfast Percent of Meal Consumed 100% 100% Feeding Ability Independent Urine Appearance Clear Clear Urine Color Dark Lela Bright Yellow Urine Odor Normal # Voids 1 OBJ DATA Labs CBC & Chem 7: 09/02/19 05:18 09/02/19 05:18 Labs: Abnormal Lab Results 09/02/19 09/02/19 09/01/19 05:18 05:18 05:22 WBC 11.2 H RBC 4.45 L MCH 34.4 H Eos % (Auto) Seg Neutrophils % 86 H Lymphocytes % 7 L Sodium Chloride 95 L Carbon Dioxide Glucose 123 H Osmolality 278 L CK-MB (CK-2) 09/01/19 09/01/19 08/31/19 05:22 05:22 09:07 WBC RBC 4.53 L MCH 34.2 H Eos % (Auto) Seg Neutrophils % 86 H Lymphocytes % 12 L Sodium 123 L 127 L Chloride 89 L 91 L Carbon Dioxide 18 L 21 L Glucose 121 H 109 H Osmolality CK-MB (CK-2) 13.3 H 08/31/19 09:07 WBC RBC MCH 34.5 H Eos % (Auto) 7.6 H Seg Neutrophils % Lymphocytes % Sodium Chloride Carbon Dioxide Glucose Osmolality CK-MB (CK-2) Meds: Medications Acetaminophen (Tylenol) 650 mg PO Q4-6HP PRN; Protocol PRN Reason: Per Pain Protocol/Fever > 101 Albuterol Sulfate (Ventolin) 2.5 mg NEB Q4HP PRN PRN Reason: Shortness Of Breath Albuterol/Ipratropium (Duoneb) 3 ml NEB Q4HRT [facility] Last Admin: 09/02/19 11:17 Dose: 3 ml Documented by: Amlodipine Besylate (Norvasc) 5 mg PO DAILY [facility] Last Admin: 09/02/19 08:31 Dose: 5 mg Documented by: Bisacodyl (Dulcolax) 10 mg IL Q2-3DAYS PRN PRN Reason: Constipation Celecoxib (Celebrex) 100 mg PO BID [facility] Last Admin: 09/02/19 09:08 Dose: 100 mg Documented by: Docusate Sodium (Colace) 100 mg PO BID [facility] Last Admin: 09/02/19 08:31 Dose: 100 mg Documented by: Guaifenesin (Mucinex) 600 mg PO DAILY [facility] Last Admin: 09/02/19 08:31 Dose: 600 mg Documented by: Guaifenesin/Codeine Phosphate (Robitussin Ac) 10 ml PO Q4HP PRN PRN Reason: Cough Heparin Sodium (Porcine) (Heparin) 5,000 unit SQ Q12 [facility] Last Admin: 09/02/19 08:29 Dose: 5,000 unit Documented by: Acetaminophen (Ofirmev) 650 mg in 65 mls @ 130 mls/hr IV Q6HP PRN; Protocol PRN Reason: Per Pain Protocol/Fever > 101 Magnesium Sulfate (Magnesium Sulfate) 2 gm in 50 mls @ 50 mls/hr IV UD PRN PRN Reason: MG = or < 1.7 Iron Carb/Multivit/[place]/Folic Acid (Multivitamin W/Minerals) 1 tab PO DAILY [facility] Last Admin: 09/02/19 08:31 Dose: 1 tab Documented by: Lisinopril (Zestril) 40 mg PO DAILY [facility] Last Admin: 09/02/19 08:31 Dose: 40 mg Documented by: Melatonin (Melatonin 3mg Tablet) 3 mg PO HSP PRN PRN Reason: Insomnia Last Admin: 09/01/19 19:58 Dose: 3 mg Documented by: Methylprednisolone Sodium Succinate (Solu-Medrol) 62.5 mg IV Q12 [facility] Last Admin: 09/02/19 08:30 Dose: 62.5 mg Documented by: Metoprolol Succinate (Toprol Xl) 25 mg PO DAILY [facility] Last Admin: 09/02/19 08:31 Dose: 25 mg Documented by: Ondansetron HCl (Zofran Odt) 4 mg SL Q4-6HP PRN; Protocol PRN Reason: Nausea And Vomiting Ondansetron HCl (Zofran) 4 mg IV Q4-6HP PRN; Protocol PRN Reason: Nausea And Vomiting Budesonide- Formoterol 160 Mcg/4 .5 Mcg Inhaler 2 dose INH BID [facility] Last Admin: 09/02/19 09:09 Dose: Not Given Documented by: Polyethylene Glycol (Miralax) 17 gm PO DAILYP PRN PRN Reason: Constipation Potassium Chloride (Klor-Con) 40 meq PO DAILYP PRN PRN Reason: K+ < 3.5 Senna/Docusate Sodium (Senna Plus Tablet) 1 tab PO HS [facility] Last Admin: 09/01/19 19:59 Dose: Not Given Documented by: Sodium Chloride (Saline Flush) 10 ml IV Q8 [facility] Last Admin: 09/02/19 07:31 Dose: 10 ml Documented by: Sodium Chloride (Sodium Chloride) 2 gm PO TID [facility] Last Admin: 09/02/19 08:32 Dose: 2 gm Documented by: Tiotropium Evans (Spiriva) 36 mcg INH DAILY [facility] Last Admin: 09/02/19 09:08 Dose: 2 puff Documented by: Vitamin D (Vitamin D3) 5,000 unit PO DAILY [facility] Last Admin: 09/02/19 08:32 Dose: 5,000 unit Documented by: A/P Time Spent With Patient Time: Total time spent is greater than 50% in coordination of care (as documented) at patient's floor/unit and/or counseling patient: QUALITY VTE Deep Vein Thrombosis/Pulmonary Embolism Present on Admission: No
== END 2019-09-02 11:28 | disposition home or self-care (01) ==
LOC: MEDSUR 08:48 → ED 08:48 → MEDSUR 12:24
PROVIDERS: ADMIT Internal Medicine; ATTEND Internal Medicine